=== PATIENT | female | born 1950 | race Caucasian/White ===

== ENCOUNTER → 2019-08-21 10:52 | Outpatient (CLI) | payer MEDICARE, OTHER, SELFPAY ==
--- NOTE | ~2019-08-21 | DEXA_ITS ---
Bone Density Report Name: Nicole Mesa Age: 68 Sex: Female Ethnicity: White Date of : 1950 Indication: postmenopausal; screening for osteoporosis; parental hip fracture; height loss; Referring Provider: CASSIA WOODSON Study: Bone densitometry was performed. Exam Date: August 21, 2019 Accession number: [id number] Bone Density: Region BMD T-score Z-score Classification AP Spine (L1-L4) 0.789 -2.3 -0.2 Osteopenia Femoral Neck (Left) 0.673 -1.6 0.3 Osteopenia Total Hip (Left) 0.834 -0.9 0.7 Normal Femoral Neck (Right) 0.595 -2.3 -0.4 Osteopenia Total Hip (Right) 0.803 -1.1 0.4 Osteopenia Total Hip Mean 0.819 -1.0 0.6 Normal World Health Organization criteria for BMD impression classify patients as: Normal (T-score at or above -1.0), Osteopenia (T-score between -1.0 and -2.5), or Osteoporosis (T-score at or below -2.5). 10-year Fracture Risk(1): Major Osteoporotic Fracture 20% Hip Fracture 6.7% Reported Risk Factors: [place] (), Neck BMD=0.595, BMI=30.4, parental fracture (1) FRAX(R) Version 3.08. Fracture probability calculated for an untreated patient. Fracture probability may be lower if the patient has received treatment. Clinical Information Provided by Patient: Parent has had a hip fracture Has used the following medications: Calcium Patient maximum height was 63.75 Menopause Age: 44 Does not regularly consume dairy products Drinks caffeinated beverages Onset of menses at age 11 Number of children 1 Impression: The patient has low bone mass, based on the Total Spine T-score. The patient has an estimated ten-year risk of hip fracture of 6.7% and an estimated ten-year risk of major fracture of 20%, based on the WHO FRAX algorithm. The patient has risk factors, including: parental hip fracture. Discussion: BONE DENSITY IS LOW AT ONE OR MORE SKELETAL SITES. THE PATIENT'S BMD AND CLINICAL RISK FACTORS CONTRIBUTE TO THIS PATIENT'S HIGH RISK OF FRACTURE. This patient's lowest T-score is low at one or more skeletal sites. It meets the World Health Organization's (WHO) criteria for ?low bone mass? (T-score between -1.0 and -2.5). The patient's 10-year risk of hip fracture and 10 year risk of a major osteoporotic fracture as calculated by FRAX exceeds the threshold where pharmacological therapy is recommended by the National Osteoporosis Foundation (NOF). However, all treatment decisions require clinical judgment and consideration of individual patient factors, including patient preferences, comorbidities, previous drug use, risk factors not captured in the FRAX model (e.g., frailty, falls, vitamin D deficiency, increased bone turnover, interval significant decline in bone density) and possible under or overestimation of fracture risk by FRAX. The patient should follow a healt
== END ==
PROVIDERS: PCP Family Medicine; Visit Provider Family Medicine
DX: Z78.0 Asymptomatic menopausal state (principal); M85.89 Other specified disorders of bone density and structure, multiple sites
CPT/HCPCS: 77080

== ENCOUNTER → 2021-01-06 03:52 | Outpatient (CLI) | payer MEDICARE, OTHER, SELFPAY ==
[2021-01-06 18:52] LABS: SARS-CoV-2 RNA PCR Negative
== END ==
PROVIDERS: PCP Family Medicine; Visit Provider Physician Assistant
DX: R68.89 Other general symptoms and signs (principal); Z20.822 Contact with and (suspected) exposure to COVID-19
CPT/HCPCS: C9803; U0003; U0005

== ENCOUNTER → 2021-12-26 13:27 | Outpatient (CLI) | payer MEDICARE, OTHER, SELFPAY ==
--- NOTE | ~2021-12-26 | DEXA_ITS ---
Bone Density Report Name: EDOUARD BRUNER Age: 71 Sex: Female Ethnicity: White Date of : 1950 Indication: osteopenia; parental hip fracture; height loss; Referring Provider: JASON LAUREANO Study: Bone densitometry was performed. Exam Date: December 26, 2021 Accession number: [id number] Bone Density: Region BMD T-score Z-score Classification AP Spine (L1-L4) 0.842 -1.9 0.4 Osteopenia Femoral Neck (Left) 0.719 -1.2 0.8 Osteopenia Total Hip (Left) 0.846 -0.8 0.9 Normal Femoral Neck (Right) 0.638 -1.9 0.1 Osteopenia Total Hip (Right) 0.829 -0.9 0.7 Normal Total Hip Mean 0.838 -0.9 0.8 Normal World Health Organization criteria for BMD impression classify patients as: Normal (T-score at or above -1.0), Osteopenia (T-score between -1.0 and -2.5), or Osteoporosis (T-score at or below -2.5). 10-year Fracture Risk(1): Major Osteoporotic Fracture 18% Hip Fracture 7.4% Reported Risk Factors: [place] (), Neck BMD=0.638, BMI=31.7, parental fracture (1) FRAX(R) Version 3.08. Fracture probability calculated for an untreated patient. Fracture probability may be lower if the patient has received treatment. Previous Exams: Region Exam Age BMD T-score BMD Change BMD Change Date g/cm2 vs Baseline vs Previous AP Spine(L1-L4) 12/26/2021 71 0.842 -1.9 0.052* 0.052* 08/21/2019 68 0.789 -2.3 Total Hip(Left) 12/26/2021 71 0.846 -0.8 0.012 0.012 08/21/2019 68 0.834 -0.9 Total Hip(Right) 12/26/2021 71 0.829 -0.9 0.026 0.026 08/21/2019 68 0.803 -1.1 *Denotes significance at 95% confidence level, LSC for AP Spine = 0.022 g/cm2, LSC for Total Hip = 0.027 g/cm2 Clinical Information Provided by Patient: Parent has had a hip fracture Has used the following medications: Vitamin D, Calcium Patient maximum height was 63.75 Menopause Age: 44 No regular weight bearing exercise Does not regularly consume dairy products Drinks caffeinated beverages Onset of menses at age 11 Number of children 1 Impression: The patient has low bone mass, based on the Total Spine T-score. The patient has an estimated ten-year risk of hip fracture of 7.4% and an estimated ten-year risk of major fracture of 18%, based on the WHO FRAX algorithm. The patient has risk factors, including: parental hip fracture. No significant bone loss was observed. Discussion: BONE DENSITY IS LOW AT ONE OR MORE S
== END ==
PROVIDERS: PCP Family Medicine; Visit Provider Nurse Practitioner Gerontology
DX: Z78.0 Asymptomatic menopausal state (principal); M85.88 Other specified disorders of bone density and structure, other site; M85.852 Other specified disorders of bone density and structure, left thigh; M85.851 Other specified disorders of bone density and structure, right thigh
CPT/HCPCS: 77080

== ENCOUNTER 2023-12-20 15:01 | Outpatient (CLI) | payer MEDICARE, OTHER, SELFPAY ==
--- NOTE | 2023-12-20 15:15 | ECG_ITS ---
Test Date: 2023-12-20 15:25:48 Measurements Intervals [place] Rate: 81 P: 48 AK: 147 QRS: 16 QRSD: 90 T: 26 QT: 368 QTc: 427 Interpretive Statements SINUS RHYTHM LOW QRS VOLTAGE IN PRECORDIAL LEADS INFERIOR INFARCT, AGE INDETERMINATE ABNORMAL ECG No previous ECG available for comparison Electronically Signed On 12-20-2023 15:29:15 CDT by Koby Harrison D.O.
[2023-12-20 15:52] LABS: Anion Gap 10 mmol/L (4-12); Blood Urea Nitrogen 10 mg/dL (7-17); Calcium 9.6 mg/dL (8.4-10.2); Carbon Dioxide 26 mmol/L (22-30); Chloride 104 mmol/L (98-107); Estimated Glomerular Filt Rate > 60; Glucose 89 mg/dL (65-110); Potassium 3.6 mmol/L (3.4-5.0); Sodium 140 mmol/L (137-145)
== END 2023-12-20 15:02 | disposition home or self-care (01) ==
LOC: ANHSURGERY 15:06
PROVIDERS: Anesthesiology; PCP Family Medicine; Visit Provider Plastic Surgery
DX: Z01.812 Encounter for preprocedural laboratory examination (principal); Z01.810 Encounter for preprocedural cardiovascular examination; E78.2 Mixed hyperlipidemia; I10 Essential (primary) hypertension; Z79.899 Other long term (current) drug therapy; R94.31 Abnormal electrocardiogram [ECG] [EKG]
CPT/HCPCS: 36415; 80048; 93005

== ENCOUNTER 2023-12-25 01:16 | Day surgery (SDC) | payer MEDICARE, OTHER, SELFPAY ==
[2023-12-20 11:09] VITALS: BMI 29.2
--- NOTE | 2023-12-20 11:20 | PC.NURSE ---
Addendum entered by Leo Combs RN 12/20/23 11:32: Planned proceedure time is 730am. Original Note: Report to the Outpatient Waiting Room, entrance under the green pavilion located off [facility], at time _0600_ on date _[id number]_. Planned Procedure Time: ___. Time changes happen often and if your time is changed the preop area will call you the afternoon before. - You and your visitor will be asked to self-screen and do not enter if you have any COVID symptoms. - A mask is optional within the hospital at this time. - No food or drink after 1130pm until time of surgery Take the following medications with a SIP of water the morning of surgery: ____None DO NOT STOP ANY OF YOUR OTHER PRESCRIPTION MEDICATIONS PRIOR TO SURGERY ?EXCEPT THE FOLLOWING Medications to discontinue per physician Vitamin D3 and Calcium Date to take last gqws____[phone] Please no make-up, nail malay, hairspray, perfume, deodorant, or body powder the day of surgery. No jewelry (including any body piercings) or valuables the day of surgery, leave them at home. Please take a shower or bath the night before, or the morning of, surgery with an antibacterial soap. Wear comfortable, loose fitting clothing. - Jewelry must be removed prior to entering the operating room. Rings and piercings that are not removed may be cut off. - The hospital will not accept responsibility for valuables. - Please leave all valuables, including medications, at home the day of surgery. If you are going home after surgery, a licensed transport driver must drive you home. - NO public transportation without another adult if you receive anesthesia. - We recommend that an adult stay with you for 24 hours following discharge. - We also recommend that you do not drive, make important decision, drink alcoholic beverages, or take any drugs that were not prescribed by your health care provider for at least 24 hours after your discharge time. Follow any additional instructions given to you from your surgeon. If you or anyone in your household have experienced Covid symptoms in the past week, please notify your surgeon or the nurse liaison at the phone number below for possible testing. Telephone instructions given to __Patty___and asked if any additional questions and then verbalized understanding. Patient advised to call surgeon office or pre surgery nurse liaison [phone] if any additional questions.
[2023-12-25] VITALS (8 sets, daily range): BP systolic 115–130; BP diastolic 48–72; PULSE 72–84; RESP 14–20; TEMP 36.1–36.6; O2SAT 94–100
--- NOTE | 2023-12-25 06:36 | ECG_ITS ---
Test Date: 2023-12-25 06:47:16 Measurements Intervals [place] Rate: 72 P: 55 TN: 156 QRS: 26 QRSD: 93 T: 29 QT: 397 QTc: 434 Interpretive Statements SINUS RHYTHM MINIMAL Q WAVES- INFERIOR LEADS BORDERLINE ECG Compared to ECG 12/20/2023 15:25:48 NO SIGNIFICANT CHANGE Electronically Signed On 12-25-2023 07:08:15 CDT by Koby Harrison D.O.
--- NOTE | 2023-12-25 06:37 | WPDHPUPDATE1 ---
History and Physical Update Update Date/Time: 12/25/23 06:37 Patient seen and examined in pre-operative holding area. No interval change in medical history or symptoms. Patient remembers previous discussion of benefits and alternatives to procedure. Continues to desire to proceed with bilateral breast implant exchange to silicone implant, possible capsulorrhaphy. I reviewed the risks including but not limited to bleeding ,infection, asymmetry, undesireable cosmetic appearance, partial/total skin/nipple loss, no change or worsening of symptoms, change in sensation, device failure, capsular contracture. I discussed the possible use of assistants and their level of participation in the case. Patient stated understanding and signed the consent form wishing to proceed
--- NOTE | 2023-12-25 06:39 | W.PM.PROC2 ---
Procedure Note - Detailed Date of Procedure 12/25/23 Pre-op Diagnosis acquired abence bilateral breast, complication breast prostehesis right Post-op Diagnosis Same Procedure Performed bilateral breast implant exchange to silicone implant and capsulectomy/capsulorrhaphy Surgeon Lilly Bullock MD Pier Master Assistant ivania sanchez pa-c Anesthesia General Description of Procedure Patient was seen in the preoperative holding area where the breasts were marked and consent form signed. Patient was taken back to the operating room and placed on the table in the supine position. Time-out was performed with Anesthesia, surgeon, and staff agreeing on patient's name, site, and surgery to be performed. SCDs were placed on the lower extremities and inflated. Antibiotics were given IV. After general anesthesia was administered the breasts were prepped and draped in the usual sterile fashion. I took my attention to the ruptured right breast implant where I proceeded with making an incision through her previous mastectomy scar through skin and dermis with a 15 blade scalpel. Bovie cautery was then used to go through subcutaneous tissue down to the capsule. I dissected superiorly and inferiorly on the capsule elevating flaps and to prevent direct line scar. I entered the capsule with Bovie cautery. I removed the ruptured deflated saline implant. Visual inspection of the pocket noted normal appearance without excess fluid biofilm or purulence. I irrigated with antibiotic solution. I provisionally placed a 560 cc Sizer which was similar to her left breast reconstruction. This revealed significant right breast capsular contracture. I proceeded with performing extensive right breast capsulotomy with radial and vertical and vertical scoring. I thus elevated the Lincoln major superiorly and released some medial attachments on the inferior aspect of the Lincoln major as well. I replaced the Sizer and this approved the position and appearance of right breast. I next took my attention to the left breast where I made a incision through the previous mastectomy scar through skin and dermis with a 15 blade scalpel. Bovie cautery was used to go through subcutaneous tissue down to the capsule and elevating the skin flaps off of the capsule superiorly and inferiorly. I then entered the capsule inferiorly to prevent direct line scar removed the intact left breast saline implant. Visual inspection of the pocket again was normal in appearance without excess fluid biofilm or exudate. It was noted prior to removal of implant at the left breast was more ptotic and displaced laterally due to a larger capsule. In order to achieve symmetry to the right breast I proceeded with performing radial and vertical scoring of the left breast capsule and proceeded with lateral capsulorrhaphy using a combination of 2-0 Vicryl and 2-0 Ethibond suture. The 560 cc Sizer was placed in the left breast and this appeared to have improved placement of the implant and improved symmetry between both pockets. The Sizer was removed. Next I proceeded with irrigating the pockets with antibiotic irrigation. The skin was re-prepped with Betadine and fresh towels were placed down. We changed our gloves and rinsed our instruments and antibiotic irrigation. I proceeded with taking a Natrelle reference number SCF -560 SN [id number] directly from the package after rinsing in antibiotic irrigation and placed in the right breast pocket in its appropriate position. I proceeded with closing capsule and dermis with 3-0 Vicryl suture 4-0 Monocryl was used for subcuticular closure. On the left breast I proceeded with placing a Natrelle SCF-560 implant SN [id number] and closing capsule with 3-0 Vicryl suture 3-0 Vicryl for dermis and 4-0 Monocryl for subcuticular closure. There was reasonable size and symmetry and position to the implants. The skin flaps were viable. A dressing of Mastisol Steri, Steri-Strips, 4 x 4, Tegaderm, ABD
[2023-12-25] MEDS: LACTATED RINGERS 1,000 ML 30 ML IV CONT (06:47)
--- NOTE | 2023-12-25 06:49 | WPDANESEPPF ---
Anes - Initial Pre Proc Eval Procedure: Operation Date: 12/25/23 07:30 Proposed Procedures p Bilateral Breast Implant Exchange and Capsulorrhaphy - Lilly Bullock MD Date/Time: 12/25/23 06:49 Surgeon: Lilly Bullock MD Pre Op Diagnosis: leakage of bilat breast implant Patient Data Age: 73 Gender: F Height: 1.57 m Weight: 72.7 kg Last Vital Signs Temp 97.8 F 12/25/23 06:26 Pulse 80 12/25/23 06:26 Resp 18 12/25/23 06:26 BP 128/68 12/25/23 06:26 Pulse Ox 97 12/25/23 06:26 O2 Del Method Room Air 12/25/23 06:26 Allergies Allergy/AdvReac Type Severity Reaction Status Date / Time No Known Allergies Allergy Verified 12/20/23 11:06 Home Medications Medication Instructions Recorded Confirmed Type calcium carbonate (Calcium 500) 500 mg PO DAILY 08/18/19 12/20/23 History losartan 100 See Rx Instructions .Route 01/04/23 12/20/23 Rx mg-hydrochlorothiazide 25 mg tablet .COMPLEX #90 tabs amlodipine 5 mg tablet See Rx Instructions .Route 06/17/23 12/20/23 Rx .COMPLEX #90 tabs simvastatin 40 mg tablet See Rx Instructions .Route 06/17/23 12/20/23 Rx .COMPLEX #90 tabs cholecalciferol (vitamin D3) 25 50 mcg PO DAILY 12/20/23 12/20/23 History mcg (1,000 unit) capsule (Vitamin D3) Patient hx anesthesia problems: none Family hx anesthesia problems: none Results Review: All pre-operative results and documents have been reviewed as part of the pre-operative evaluation. [facility] Past Medical History Medical History Benign essential HTN Breast CA Calculus of GB w/ obst w/o cystitis CAP (community acquired pneumonia) Chronic cough Mixed hyperlipidemia Subacute sinusitis Surgical History Surgical History H/O bilateral mastectomy Hx of breast implants, bilateral Family History Family History Father Hypertension Family history of elevated blood lipids Grandparent Family history of malignant neoplasm of breast Social History Social History Social History: Smoking status: Never smoker Second hand tobacco smoke exposure: No Alcohol intake: current Drinks per week: 5 Alcohol use details: occasionally Substance use: never Substance use type: does not use Lack of Transportation: No Lack of Food: Never True Current Housing: I Have Housing Concerned About Future Housing: No Difficulty Paying Gas/Electric Bills: No Difficulty Paying for Meds: No Currently Unemployed: YES Education: Decline to Answer Difficulty w/ Childcare or Family Care: No Living arrangements: with family Occupation/Education: retired Gender identity (if verbalized by the patient): Female Sexual Orientation (if Verbalized by the Patient): Straight or Heterosexual Spiritual care concerns: No Anes - Eval Final PreProcedure Day of Procedure 12/25/23 06:49 Patient weight: normal Heart: regular rate and rhythm Lungs: clear to auscultation Airway: Mallampati scale and special considerations (Missing L upper tooth. ) Neurological: alert and oriented Last oral intake: >/= 8 hours ASA classification: II Emergent: no Anesthetic plan: proceed Anesthesia type and monitoring: general LMA and standard monitoring Results Review: All pre-operative results and documents have been reviewed as part of the pre-operative evaluation. EKG today w NSR. Informed Consent: The patient's anesthetic plan and its attendant risks and benefits were discussed with the patient/family/POA. Questions were solicited and answers provided to the satisfaction of the patient/family/POA.
[2023-12-25] MEDS: ceFAZolin 2 GM/D5W 50 ML 2 GM/50 ML BAG IVPB (07:34)
[2023-12-25] MEDS: BUPivacaine HCL 0.5% PF 30 ML VIAL INFILTRATE (07:47)
[2023-12-25] MEDS: NACL 0.9% IRRIG POUR BOTTLE 1,000 ML, GENTAMICIN SULFATE INJ 160 MG, ceFAZolin 2 GM IRRIGATION (07:47)
[2023-12-25] MEDS: LIDO 1%/EPINEPHRINE 1:100,000 50 ML VIAL 30 ML INFILTRATE (07:54)
[2023-12-25] MEDS: fentaNYL CITRATE INJ (*CRX) 100 MCG/2 ML VIAL 25 MCG IV PUSH ×2 (09:10→09:12)
--- NOTE | 2023-12-25 09:15 | SUR.PHASEI ---
0915 - dr. cook in [place] talking with dawna
[2023-12-25] MEDS: oxyCODONE HCL (*CRX) 5 MG TAB IR PO (10:02)
== END 2023-12-25 10:40 | disposition home or self-care (01) ==
PROVIDERS: PCP Family Medicine; Visit Provider Plastic Surgery
PROC: (CPT 19380; principal; 2023-12-25 07:30)
DX: T85.43XA Leakage of breast prosthesis and implant, initial encounter (principal); I10 Essential (primary) hypertension; E78.2 Mixed hyperlipidemia; R05.3 Chronic cough; Z98.890 Other specified postprocedural states; Z90.13 Acquired absence of bilateral breasts and nipples; Z85.3 Personal history of malignant neoplasm of breast; Z80.3 Family history of malignant neoplasm of breast; Y83.8 Other surgical procedures as the cause of abnormal reaction of the patient, or of later complication, without mention of misadventure at the time of the procedure
CPT/HCPCS: 19380; 88300; 93005; A9270; J0690; J1100; J1170; J1580; J2405; J2704; J3010; J7120

== ENCOUNTER 2024-10-28 15:37 | Outpatient (CLI) | payer MEDICARE, OTHER, SELFPAY ==
--- OUTSIDE RECORDS SUMMARY | 2024-10-28 14:47 | XMS_ITS | Continuity of Care Document ---
Author Name [facility] Organization [facility] Care Team Providers Care Contour Grinder Name Role Phone [facility] Unavailable Unavailable Medications Combined list of outpatient medications from Department of Defense and Veterans Affairs facilities.Medications provided include 1) outpatient medications from the last 15 months, and 2) patient-reported medications. Medication Details Route Status Patient Instructions Prescription Expires Prescription Number Last Dispense Date Ordering Provider Order Date Order Qty Source CEPHALEXIN (CEPHALEXIN MONOHYDRATE ), 500MG, CAPSULE, ORAL, TEVA [place], 500 ea. BOTTLE Active [id number] 2023 40 Pharmac y Data Transac tion Service Facilit y Immunizations Combined list of available immunizations from the Department of Defense and Veterans Affairs facilities. Immunization Series Date Given Administered By Site Reaction Lot Number CVX Code Drug Extrusion Manager Status Comments Source COVID-19, mRNA, LNP-S, PF, 30 mcg/0.3 mL dose, karen-sucrose 2021 DARIANQ-go [place] (PFR) Not Given COVID-19, mRNA, LNP-S, PF, 30 mcg/0.3 mL dose, karen-sucr ose [facility] Influenza vaccine, quadrivalent, adjuvanted 2020 DENNY, () Not Given Influenza vaccine, quadrival ent, adjuvante d [facility] COVID-19, mRNA, LNP-S, PF, 30 mcg/0.3 mL dose 2020 [employer] [place] (PFR) Not Given COVID-19, mRNA, LNP-S, PF, 30 mcg/0.3 mL dose [facility] Influenza vaccine, quadrivalent, adjuvanted 2019 GAVIOTA POSADA () Not Given Influenza vaccine, quadrival ent, adjuvante d [facility] Pneumococcal conjugate PCV 13 2018 GAVIOTA POSADA () Not Given Pneumococ preeti conjugate PCV 13 [facility] Social History Combined list of available smoking, tobacco, and other social history from Department of Defense and Veterans Affairs facilities. Social History Type Response Date Comment Sour e This section is an empty social history section. [facility]
--- OUTSIDE RECORDS SUMMARY | 2024-10-28 15:39 | XMS_ITS | Continuity of Care Document ---
Author Name [facility] Organization [facility] Care Team Providers Care Ion Implant Machine Operator Name Role Phone [facility] Unavailable Unavailable Medications Combined list of outpatient medications from Department of Defense and Veterans Affairs facilities.Medications provided include 1) outpatient medications from the last 15 months, and 2) patient-reported medications. Medication Details Route Status Patient Instructions Prescription Expires Prescription Number Last Dispense Date Ordering Provider Order Date Order Qty Source CEPHALEXIN (CEPHALEXIN MONOHYDRATE ), 500MG, CAPSULE, ORAL, TEVA [place], 500 ea. BOTTLE Active [id number] 2023 40 Pharmac y Data Transac tion Service Facilit y Immunizations Combined list of available immunizations from the Department of Defense and Veterans Affairs facilities. Immunization Series Date Given Administered By Site Reaction Lot Number CVX Code Drug Newspaper Photo Editor Status Comments Source COVID-19, mRNA, LNP-S, PF, 30 mcg/0.3 mL dose, karen-sucrose 2021 DARIANDr. Z [place] (PFR) Not Given COVID-19, mRNA, LNP-S, PF, 30 mcg/0.3 mL dose, karen-sucr ose [facility] Influenza vaccine, quadrivalent, adjuvanted 2020 DENNY, () Not Given Influenza vaccine, quadrival ent, adjuvante d [facility] COVID-19, mRNA, LNP-S, PF, 30 mcg/0.3 mL dose 2020 MALGORZ[employer]spotting [place] (PFR) Not Given COVID-19, mRNA, LNP-S, PF, 30 mcg/0.3 mL dose [facility] Influenza vaccine, quadrivalent, adjuvanted 2019 GAVIOTA POSADA () Not Given Influenza vaccine, quadrival ent, adjuvante d [facility] Pneumococcal conjugate PCV 13 2018 GAVIOTA POSADA () Not Given Pneumococ preeti conjugate PCV 13 [facility] Social History Combined list of available smoking, tobacco, and other social history from Department of Defense and Veterans Affairs facilities. Social History Type Response Date Comment Sour e This section is an empty social history section. [facility]
[2024-10-28 16:10] LABS: Hematocrit 40.1 % (37.0-47.0); Mean Corpuscular HGB Conc 32.4 g/dl (32-36); Mean Corpuscular Hemoglobin 29.3 pg (26-34); Mean Corpuscular Volume 90.3 fl (80-100); Platelet Count Result 295 k/mm3 (150-375); Red Blood Count 4.44 M/mm3 (4.2-5.4); Red Cell Distribution Width 13.1 % (11.5-14.5); White Blood Count 5.6 K/mm3 (4.5-10.0)
[2024-10-28 16:34] LABS: Alanine Aminotransferase 11 U/L (6-35); Albumin Level 4.4 g/dL (3.5-5.1); Alkaline Phosphatase 81 U/L (38-126); Anion Gap 8 mmol/L (4-12); Aspartate Amino Transferase 25 U/L (14-36); Bilirubin,Total 0.9 mg/dL (0.2-1.3); Blood Urea Nitrogen 9 mg/dL (7-17); Calcium 9.3 mg/dL (8.4-10.2); Carbon Dioxide 27 mmol/L (22-30); Chloride 103 mmol/L (98-107); Estimated Glomerular Filt Rate > 60; Glucose 90 mg/dL (65-110); Potassium 3.8 mmol/L (3.4-5.0); Sodium 138 mmol/L (137-145)
[2024-10-28 17:16] LABS: Thyroid Stimulating Hormone 0.823 uIU/mL (0.465-4.680)
[2024-10-28 17:18] LABS: MRSA (PCR) NOT DETECTED (NOT DETECTE)
== END 2024-10-28 15:38 | disposition home or self-care (01) ==
PROVIDERS: Physician Assistant; PCP Family Medicine; Visit Provider Family Medicine
DX: L03.90 Cellulitis, unspecified (principal); B95.62 Methicillin resistant Staphylococcus aureus infection as the cause of diseases classified elsewhere; I10 Essential (primary) hypertension; R53.83 Other fatigue
CPT/HCPCS: 36415; 80053; 84443; 85027; 87641

== ENCOUNTER 2025-02-05 11:54 | Outpatient (CLI) | payer MEDICARE, OTHER, SELFPAY ==
--- NOTE | ~2025-02-05 | XR_ITS ---
EXAMINATION: XR chest 2V 02/05/2025 12:33 INDICATION: Cough, unspecified TECHNIQUE:Frontal and lateral images of the chest were obtained. COMPARISON: 02/10/2010 FINDINGS: Moderate S-shaped curvature of the thoracolumbar spine. Bones appear osteopenic. Heart is borderline enlarged. No pneumothorax. No pleural effusion. No free air under the diaphragm. Small to moderate sized opacities in the mid and lower lungs. IMPRESSION: 1: Small to moderate sized opacities in the mid and lower lungs. Differential includes atelectasis/scarring or infiltrates. Reviewed, dictated and finalized at location Q.
--- OUTSIDE RECORDS SUMMARY | 2025-02-05 10:56 | XMS_ITS | Continuity of Care Document ---
Author Name [facility] Organization [facility] Care Team Providers Care Product Builder Name Role Phone [facility] Unavailable Unavailable Immunizations Combined list of available immunizations from the Department of Defense and Veterans Affairs facilities. Immunization Series Date Given Administered By Site Reaction Lot Number CVX Code Drug Medical Referral Coordinator Status Comments Source COVID-19, mRNA, LNP-S, PF, 30 mcg/0.3 mL dose, karen-sucrose 2021 DARIANTwonq [place] (PFR) Not Given COVID-19, mRNA, LNP-S, PF, 30 mcg/0.3 mL dose, karen-sucr ose [facility] Influenza vaccine, quadrivalent, adjuvanted 2020 DENNY, () Not Given Influenza vaccine, quadrival ent, adjuvante d [facility] COVID-19, mRNA, LNP-S, PF, 30 mcg/0.3 mL dose 2020 [employer] [place] (PFR) Not Given COVID-19, mRNA, LNP-S, PF, 30 mcg/0.3 mL dose [facility] Influenza vaccine, quadrivalent, adjuvanted 2019 GAVIOTA POSADA () Not Given Influenza vaccine, quadrival ent, adjuvante d [facility] Pneumococcal conjugate PCV 13 2018 GAVIOTA POSADA () Not Given Pneumococ preeti conjugate PCV 13 [facility] Social History Combined list of available smoking, tobacco, and other social history from Department of Defense and Veterans Affairs facilities. Social History Type Response Date Comment Sour e This section is an empty social history section. [facility]
[2025-02-05 12:53] LABS: Hematocrit 36.3 % (37.0-47.0); Hemoglobin 11.7 g/dL (12.0-15.0); Immature Granulocyte Percent A 0.4 % (0-0.5); Lymphocytes Absolute Auto 0.96 K/mm3 (0.9-3.2); Mean Corpuscular HGB Conc 32.2 g/dl (32-36); Mean Corpuscular Hemoglobin 28.5 pg (26-34); Mean Corpuscular Volume 88.3 fl (80-100); Nucleated Red Blood Cells Absolute Auto 0.000 K/mm3 (0.0-0.012); Nucleated Red Blood Cells Perc 0.0 % (0.0-0.2); Platelet Count Result 307 k/mm3 (150-375); Red Blood Count 4.11 M/mm3 (4.2-5.4); White Blood Count 8.4 K/mm3 (4.5-10.0)
[2025-02-05 13:02] LABS: Alanine Aminotransferase 10 U/L (6-35); Albumin Level 3.7 g/dL (3.5-5.1); Alkaline Phosphatase 94 U/L (38-126); Anion Gap 8 mmol/L (4-12); Aspartate Amino Transferase 25 U/L (14-36); Bilirubin,Total 1.1 mg/dL (0.2-1.3); Blood Urea Nitrogen 14 mg/dL (7-17); Calcium 9.5 mg/dL (8.4-10.2); Carbon Dioxide 28 mmol/L (22-30); Chloride 99 mmol/L (98-107); Estimated Glomerular Filt Rate 52; Glucose 94 mg/dL (65-110); Potassium 3.1 mmol/L (3.4-5.0); Sodium 135 mmol/L (137-145); Total Protein 6.8 g/dL (6.3-8.2)
[2025-02-05 13:33] LABS: Influenza A QL RT-PCR Negative (Negative); Influenza B QL RT-PCR Negative (Negative); RSV RNA, RT-PCR Negative (Negative); SARS-CoV-2 RNA PCR Negative (Negative)
== END 2025-02-05 11:55 | disposition home or self-care (01) ==
PROVIDERS: PCP Family Medicine
DX: R91.8 Other nonspecific abnormal finding of lung field (principal); R53.81 Other malaise; R63.0 Anorexia
CPT/HCPCS: 36415; 71046; 80053; 85025; 87637